=== PATIENT | female | born 2000 | race Two or more races ===

== ENCOUNTER 2024-03-10 21:43 | Emergency (ER) | payer SELFPAY ==
[~2024-03-10] VITALS: Ht 157.5 cm; Wt 54.4 kg
[2024-03-10 23:02] LABS: PLATELET COUNT (AUTO) 350 K/uL (179-408); RED CELL DISTRIBUTION WIDTH 13.2 % (12.3-17.7)
[2024-03-10 23:10] LABS: CALCIUM 8.9 mg/dL (8.5-10.1); CARBON DIOXIDE 27 mmol/L (21-32); CHLORIDE 103 mmol/L (98-107); CREATININE 0.7 mg/dL (0.6-1.3); GLUCOSE 106 mg/dL (74-106); POTASSIUM 3.8 mmol/L (3.5-5.1); SODIUM SERUM 138 mmol/L (136-145); UREA NITROGEN, BLOOD 13 mg/dL (7-18)
[2024-03-10 23:15] LABS: BASOPHILS % (AUTO) 0.4 % (0.0-2.0); EOSINOPHILS # (AUTO) 0.4 K/uL (0.0-0.7); EOSINOPHILS % (AUTO) 4.3 % (0.0-7.0); ETHANOL < 3 MG/DL (0-10); HEMATOCRIT 38.2 % (31.2-41.9); HEMOGLOBIN 12.8 g/dL (10.9-14.3); LYMPHOCYTES # (AUTO) 1.9 K/uL (0.8-4.8); LYMPHOCYTES % (AUTO) 21.8 % (20.5-51.5); MEAN CORPUSCULAR HGB CONC 34 g/dL (32.3-35.6); MEAN CORPUSCULAR VOLUME 86.8 fL (75.5-95.3); MONOCYTES # (AUTO) 0.7 K/uL (0.1-1.30); MONOCYTES % (AUTO) 8.7 % (0.0-11.0); NEUTROPHILS # (AUTO) 5.5 K/uL (1.8-8.9); NEUTROPHILS % (AUTO) 64.8 % (38.5-71.5); WHITE BLOOD COUNT (AUTO) 8.5 K/uL (3.8-11.8)
[2024-03-10 23:16] LABS: DIFFERENTIAL COMMENT 1
[2024-03-10 23:18] LABS: ALANINE AMINOTRANSFERASE 18 U/L (14-59); ALBUMIN 3.6 g/dL (3.4-5.0); ALKALINE PHOSPHATASE 79 U/L (50-136); ASPARTATE AMINOTRANSFERASE 13 U/L (15-37); BILIRUBIN,DIRECT 0.2 mg/dL (0.0-0.2); BILIRUBIN,TOTAL 0.3 mg/dL (0.2-1.0); TOTAL PROTEIN, SERUM 7.9 g/dL (6.4-8.2)
[2024-03-10 23:45] LABS: *BILIRUBIN,URIN NEGATIVE (NEGATIVE); *BLOOD, URINE NEGATIVE (NEGATIVE); *CLARITY,URINE CLEAR (CLEAR); *COLOR,URINE YELLOW (YELLOW); *KETONES,URINE NEGATIVE (NEGATIVE); *PROTEIN,URINE NEGATIVE (NEGATIVE); *UROBILINOGEN,URINE 0.2 E.U./dl (NORMAL); LEUKOCYTE ESTERASE ,URINE TRACE (NEGATIVE); NITRITE, URINE NEGATIVE (NEGATIVE); UGLUCOSE NEGATIVE (NEGATIVE)
[2024-03-10 23:46] LABS: *URINE HCG, QUAL NEGATIVE (NEGATIVE)
[2024-03-10 23:58] LABS: *AMPHETAMINE, URINE POSITIVE (NEGATIVE); *BARBITURATE, URINE NEGATIVE (NEGATIVE); *BENZODIAZEPINE, URINE POSITIVE (NEGATIVE); *CANNABINOID, URINE NEGATIVE (NEGATIVE); *COCCAINE, URINE NEGATIVE (NEGATIVE); *OPIATE, URINE NEGATIVE (NEGATIVE); *PHENCYCLIDINE SCREEN,URINE NEGATIVE (NEGATIVE)
[2024-03-11 00:01] LABS: FENTANYL, URINE POSITIVE (NEGATIVE)
[2024-03-11 00:05] LABS: RBC,URINE NONE SEEN /HPF (0-3)
[2024-03-11 00:06] LABS: BACTERIA,URINE FEW /HPF (NONE SEEN); SQUAMOUS EPITHELIAL CELL,UR MODERATE /HPF (NONE SEEN)
[2024-03-11] MEDS ORDERED: KETOROLAC TROMETHAMINE 30 MG INJ ONE (01:31)
[2024-03-11] MEDS: KETOROLAC TROMETHAMINE 30 MG INJ IM ONE (01:37)
[2024-03-11] MEDS ORDERED: BACL10TA PO (02:07)
[2024-03-11] MEDS ORDERED: HYDR-501 PO (02:07)
[2024-03-11 02:20] VITALS: BP 116/69; O2SAT 97
== END 2024-03-11 02:22 | disposition home or self-care (01) ==
LOC: ER 22:05
DX: T40.601A Poisoning by unspecified narcotics, accidental (unintentional), initial encounter (principal); R10.2 Pelvic and perineal pain; F19.90 Other psychoactive substance use, unspecified, uncomplicated; R41.82 Altered mental status, unspecified; F11.20 Opioid dependence, uncomplicated; Z79.899 Other long term (current) drug therapy; Y92.89 Other specified places as the place of occurrence of the external cause
CPT/HCPCS: 80076; 80048; 81001; 84703; 85025; 84484; 36415; 93005 ×2; 99284; 83605; 87086; 80320; 80307; 96372; J1885; A4606; A4663; G0480